=== PATIENT | male | born 1995 | race Caucasian/White ===

== ENCOUNTER 2021-07-29 20:46 | Emergency (ER) | payer BC ==
[2021-07-29 20:51] VITALS: BP 170/81; TEMP 98.7; BMI 30.2
[2021-07-29] MEDS ORDERED: EPINEPHrine 1:1,000 0.3 MG/0.3 ML SYR IM ONE (21:07)
[2021-07-29] MEDS ORDERED: FAMOTIDINE 20 MG/50 ML IVPB 20 MG/50 ML MG IVPB ONE ×2 (21:09→21:17)
[2021-07-29] MEDS ORDERED: EPINEPHrine/PF 1 MG/1 ML (1:1,000) AMPULE ONE (21:10)
[2021-07-29] MEDS ORDERED: DEXAMETHASONE SOD PHOSPHATE 10 MG/1 ML VIAL IVPUSH ONE (21:10)
[2021-07-29] MEDS ORDERED: SODIUM CHLORIDE 0.9% 500 ML INFUS.BAG IV ONE (21:12)
[2021-07-29] MEDS ORDERED: DEXAMETHASONE SOD PHOSPHATE 10 MG/1 ML VIAL ONE (21:17)
[2021-07-29 23:02] VITALS: PULSE 112
== END 2021-07-29 23:02 | disposition left against medical advice (07) ==
LOC: JER 20:46
PROC: 3E033GC Introduction of Other Therapeutic Substance into Peripheral Vein, Percutaneous Approach (ICD-10-PCS; principal; 2021-07-29)
PROC: 3E033GC Introduction of Other Therapeutic Substance into Peripheral Vein, Percutaneous Approach (ICD-10-PCS; 2021-07-29)
PROC: 3E023GC Introduction of Other Therapeutic Substance into Muscle, Percutaneous Approach (ICD-10-PCS; 2021-07-29)
PROC: 3E033GC Introduction of Other Therapeutic Substance into Peripheral Vein, Percutaneous Approach (ICD-10-PCS; 2021-07-29)
DX: T78.00XA Anaphylactic reaction due to unspecified food, initial encounter (principal)
CPT/HCPCS: 99284-25; J1100

== ENCOUNTER 2022-02-21 08:30 | Emergency (ER) | payer BC ==
[2022-02-21 08:33] VITALS: BP 139/81; PULSE 76; RESP 18; TEMP 98.7; BMI 30.2
[2022-02-21] MEDS ORDERED: KETOROLAC TROMETHAMINE 30 MG/1 ML VIAL IM ONE (08:37)
[2022-02-21] MEDS ORDERED: KETOROLAC TROMETHAMINE 30 MG/1 ML VIAL ONE (08:45)
== END 2022-02-21 09:34 | disposition home or self-care (01) ==
LOC: FER 08:30
PROC: 3E023GC Introduction of Other Therapeutic Substance into Muscle, Percutaneous Approach (ICD-10-PCS; principal; 2022-02-21)
DX: S89.91XA Unspecified injury of right lower leg, initial encounter (principal); W22.8XXA Striking against or struck by other objects, initial encounter
CPT/HCPCS: 73562-TC-RT-FY; 99284-25

== ENCOUNTER 2022-04-08 09:04 | Emergency (ER) | payer BC ==
[2022-04-08 09:11] VITALS: BP 140/82; PULSE 70; RESP 18; TEMP 98.3; BMI 30.2
== END 2022-04-08 09:50 | disposition home or self-care (01) ==
LOC: FER 09:04
DX: L25.9 Unspecified contact dermatitis, unspecified cause (principal)
CPT/HCPCS: 99283-25

== ENCOUNTER 2022-08-09 16:18 | Emergency (ER) | payer BC ==
[2022-08-09 16:26] VITALS: BP 158/93; PULSE 81; RESP 18; TEMP 98.2; BMI 30.8
[2022-08-09] MEDS ORDERED: IBUPROFEN 600 MG TABLET (FP) PO ONE ×2 (16:27→16:29)
== END 2022-08-09 17:33 | disposition home or self-care (01) ==
LOC: FER 16:18
DX: M25.531 Pain in right wrist (principal); W01.0XXA Fall on same level from slipping, tripping and stumbling without subsequent striking against object, initial encounter
CPT/HCPCS: 73110-TC-RT-FY; 73130-TC-RT-FY; 99283-25

== ENCOUNTER 2022-11-07 18:59 | Emergency (ER) | payer BC ==
[2022-11-07 19:04] VITALS: BP 143/94; PULSE 81; RESP 18; TEMP 98.2; BMI 31.4
[2022-11-07] MEDS ORDERED: DEXAMETHASONE SOD PHOSPHATE 10 MG/1 ML VIAL IM ONE (19:34)
[2022-11-07] MEDS ORDERED: DEXAMETHASONE SOD PHOSPHATE/PF 10 MG/ML SDV ONE (19:39)
== END 2022-11-07 19:44 | disposition home or self-care (01) ==
LOC: FER 18:59
PROC: 3E023GC Introduction of Other Therapeutic Substance into Muscle, Percutaneous Approach (ICD-10-PCS; principal; 2022-11-07)
DX: J30.2 Other seasonal allergic rhinitis (principal)
CPT/HCPCS: 99284-25; J1100

== ENCOUNTER 2022-11-15 19:37 | Emergency (ER) | payer BC ==
[2022-11-15 19:49] VITALS: BP 155/98; PULSE 94; RESP 18; TEMP 98.9; BMI 31.4
[2022-11-15] MEDS ORDERED: ALBUTEROL SO4 2.5/IPRATROPIUM 0.5 INH SOL 3 ML VIAL.NEB. NEB ONE ×2 (21:05→21:06)
== END 2022-11-15 21:30 | disposition home or self-care (01) ==
LOC: FER 19:37
PROC: 3E0F7GC Introduction of Other Therapeutic Substance into Respiratory Tract, Via Natural or Artificial Opening (ICD-10-PCS; principal; 2022-11-15)
DX: R06.02 Shortness of breath (principal); R06.2 Wheezing; Z53.21 Procedure and treatment not carried out due to patient leaving prior to being seen by health care provider
CPT/HCPCS: 99283-25

== ENCOUNTER 2023-07-24 08:33 | Emergency (ER) | payer BC ==
[2023-07-24 08:49] VITALS: BP 143/96; PULSE 75; RESP 18; TEMP 98.2; BMI 31.4
[2023-07-24] MEDS ORDERED: ACETAMINOPHEN 500 MG TABLET (FP) PO ONE (09:19)
[2023-07-24] MEDS ORDERED: KETOROLAC TROMETHAMINE 15 MG/ML VIAL IM ONE ×2 (09:19→10:26)
[2023-07-24] MEDS ORDERED: LIDOCAINE 5% TOPICAL PATCH TP ONE (09:19)
[2023-07-24] MEDS ORDERED: METHOCARBAMOL 500 MG TABLET PO ONE (09:25)
[2023-07-24] MEDS ORDERED: ACETAMINOPHEN 500 MG TABLET (FP) ONE (09:28)
[2023-07-24] MEDS ORDERED: LIDOCAINE 5% TOPICAL PATCH ONE (09:28)
[2023-07-24] MEDS ORDERED: METHOCARBAMOL 500 MG TABLET ONE (09:28)
[2023-07-24] MEDS ORDERED: KETOROLAC TROMETHAMINE 15 MG/ML VIAL ONE (10:31)
[2023-07-24] MEDS ORDERED: LIDOCAINE PATCH REMOVAL MC ONE (22:00)
== END 2023-07-24 10:39 | disposition home or self-care (01) ==
LOC: FER 08:33
PROC: 3E0233Z Introduction of Anti-inflammatory into Muscle, Percutaneous Approach (ICD-10-PCS; principal; 2023-07-24)
DX: M54.2 Cervicalgia (principal); M25.512 Pain in left shoulder; W10.8XXA Fall (on) (from) other stairs and steps, initial encounter; Y92.008 Other place in unspecified non-institutional (private) residence as the place of occurrence of the external cause
CPT/HCPCS: 72125-TC; 73030-TC-LT-FY; 73070-TC-LT-FY; 99284-25